=== PATIENT | female | born 1975 | race Caucasian/White ===

== ENCOUNTER 2019-05-07 11:46 | Emergency (ER) | payer SELFPAY ==
--- NOTE | 2019-05-07 12:00 | Emergency Department Report ---
Blank Doc - Documentation Documentation: 44-year-old female that presents with shoulder and neck pain with radiation to right UE. Denies any injuries, This initial assessment/diagnostic orders/clinical plan/treatment(s) is/are subject to change based on patient's health status, clinical progression and re-assessment by fellow clinical providers in the ED. Further treatment and workup at subsequent clinical providers discretion. Patient/guardians urged not to elope from the ED as their condition may be serious if not clinically assessed and managed. Initial orders include: 1- Patient sent to [facility] for further evaluation and treatment 2- xrays
[2019-05-07 12:02] VITALS: BP 110/80
--- NOTE | 2019-05-07 12:40 | XRay Report ---
RIGHT SHOULDER HISTORY: Right shoulder pain. COMPARISON: None. TECHNIQUE: 3 views of the right shoulder were obtained. FINDINGS: Bones: No fracture or dislocation. Joint spaces: Maintained. Soft tissues: No significant abnormality. Additional findings: None. IMPRESSION: 1. No significant abnormality. Signer Name: Stevenson Wang MD Signed: 05/07/2019 12:35 PM Workstation Name: [id number]
--- NOTE | 2019-05-07 12:42 | XRay Report ---
CERVICAL SPINE HISTORY: Neck pain. COMPARISON: None. TECHNIQUE: 3 view(s) of the cervical spine obtained. FINDINGS: Vertebrae: Normal alignment. No fracture or significant abnormality. Disc Spaces:Mild degenerative disc disease from C4-5 through C6-7. Facet Joints:No significant abnormality. Prevertebral Soft Tissues:No significant abnormality. Additional findings: None. IMPRESSION: 1. Mild degenerative disc disease. 2. No other significant finding. Signer Name: Stevenson Wang MD Signed: 05/07/2019 12:38 PM Workstation Name: [id number]
--- NOTE | 2019-05-07 13:25 | Emergency Department Report ---
ED Neck Pain HPI Chief Complaint: Neck Pain/Injury Stated Complaint: RIGHT SHOULDER PAIN Time Seen by Provider: 05/07/19 11:59 Neck Pain Location: Lateral Neck, Trapezius Severity: moderate Mechanism: Awkward Position, Unsure Symptoms: Yes Radiation to Right Upper Ext, No Pain with Movement, No Radiation to Left Upper Ext, No Numbness, No Weakness, No Previous History Other History: This is a 44-year-old female with no prior medical history or any injuries presents the ED complaining of right-sided neck pain that radiates to her shoulders and fingers. Patient denies any history of diabetes. Patient states that she feels tingling sensation in her fingers. Patient states is been going on for the past 3 to 4 days. ED Review of Systems ROS: Stated complaint: RIGHT SHOULDER PAIN Other details as noted in HPI Comment: All other systems reviewed and negative ED Past Medical Hx - Past Medical History Previous Medical History?: No - Surgical History Past Surgical History?: No - Medications Home Medications: Home Medications Medication Instructions Recorded Confirmed Last Taken Type Ibuprofen [Motrin 800 MG tab] 800 mg PO TID #30 tablet 05/07/19 Unknown Rx tiZANidine [Zanaflex 4mg TAB] 4 mg PO BID #30 tablet 05/07/19 Unknown Rx Neck Pain Exam - Exam General: Vital signs noted. No distress. Alert and acting appropriately. HEENT: No Facial Pain, No Scalp Tenderness, No Contusion, No Abrasion, No Laceration Neck Pain: Yes Right Paraspinal Tenderness, No Midline Tenderness, No Left Paraspinal Tenderness, No Right Trapezius Tenderness, No Left Trapezius Tenderness, No Pain with Rotation Right, No Pain with Rotation Left, No Pain with Extension, No Pain with Flexion, No pain with R Lateral Flexion, No Pain with L Lateral Flexion Chest: Yes Clear Lung Sounds, No Pain with Respirations Heart: Yes Regular, No Murmur Back: No Thoracic Tenderness, No Lumbar Tenderness Neuro: No Numbness, No Weakness, No Normal Reflexes, No Radicular Deficits ED Course Vital Signs 05/07/19 12:01 Temperature 98.6 F Pulse Rate 100 H Respiratory 22 Rate Blood Pressure 110/80 [Right] O2 Sat by Pulse 100 Oximetry ED Medical Decision Making - Radiology Data Radiology results: report reviewed, image reviewed Ordering Physician: IAN CAGE NP Date of Service: 03/23/20 Procedure(s): XR spine cervical 2-3V Accession Number(s): [id number] cc: IAN CAGE NP Fluoro Time In Minutes: CERVICAL SPINE HISTORY: Neck pain. COMPARISON: None. TECHNIQUE: 3 view(s) of the cervical spine obtained. FINDINGS: Vertebrae: Normal alignment. No fracture or significant abnormality. Disc Spaces:Mild degenerative disc disease from C4-5 through C6-7. Facet Joints:No significant abnormality. Prevertebral Soft Tissues:No significant abnormality. Additional findings: None. IMPRESSION: 1. Mild degenerative disc disease. 2. No other significant finding. Signer Name: Stevenson Salmeron MD Signed: 05/07/2019 12:38 PM Workstation Name: [id number] Transcribed By: REF Dictated By: STEVENSON SALMERON MD Electronically Authenticated By: STEVENSON SALMERON MD Signed Date/Time: 05/07/19 1238 - Medical Decision Making 44-year-old female presents with cervical radiculopathy X-ray shows degenerative disease. See report above Discussed with patient results from x-ray. Discussed need to follow-up with her neurologist/orthopedic. Referrals given to patient. Patient understands instructions and will follow-up. Patient is not in any acute or respiratory distress. Critical care attestation.: If time is entered above; I have spent that time in minutes in the direct care of this critically ill patient, excluding procedure time. ED Disposition Clinical Impression: Cervical radiculopathy, Neck pain on right side Disposition: DC-01 TO HOME OR SELFCARE Is pt being admited?: No Does the pt Need Aspirin: No Condition: Stable Instructions: Cervical Radiculopathy (ED) Additional Instructions: Make sure to follow up with the primary care physician as discussed. Take all your medications as you've been prescribed. If you have any worsening symptoms or develop new symptoms please return to ED immediately. Prescriptions: Ibuprofen [Motrin 800 MG tab] 800 mg PO TID #30 tablet tiZANidine [Zanaflex 4mg TAB] 4 mg PO BID #30 tablet Referrals: [facility] [Provider Group] - 3-5 Days Forms: Accompanied Note, Work/School Release Form(ED) Time of Disposition: 13:55
[2019-05-07] MEDS ORDERED: CYCLOBENZAPRINE 10 MG TAB ONE (13:43)
[2019-05-07] MEDS ORDERED: IBUPROFEN 800 MG TAB ONE (13:43)
[2019-05-07] MEDS ORDERED: IBUPROFEN 800 MG TAB PO ONE (13:44)
[2019-05-07] MEDS ORDERED: CYCLOBENZAPRINE 10 MG TAB PO ONE (13:45)
== END 2019-05-07 14:11 | disposition home or self-care (01) ==
LOC: ED 11:46
DX: M54.12 Radiculopathy, cervical region (principal); Z79.899 Other long term (current) drug therapy
CPT/HCPCS: 72040; 99283